=== PATIENT | male | born 1940 | race Caucasian/White ===

== ENCOUNTER → 2017-11-15 | Outpatient (CLI) | payer OTHER ==
[~2017-11-15] MED LIST: BAYER CHEWABLE81 MG PO; QUINU10 PD PO; TRAMADOL 50 MG50 MG PO; VIAGRA50 MG PO; ZOCOR40 MG PO
--- NOTE | ~2017-11-15 | 2DMMODE ---
[facility] [place] [address] 2 D/M-MODE ECHOCARDIOGRAM Name: DEEPASIRI Room #: REG [facility]#: [id number] Admission: 11/15/17 Attend Phys: Vin Zuluaga MD Discharge: Date of : 40 Date of Service: 11/15/17 1128 Report #: [id number] THIS REPORT FOR: //name// APPROVED REPORT Study performed: 11/15/2017 09:16:33 EXAM: Comprehensive 2D, Doppler, and color-flow Echocardiogram Patient Location: Out-Patient Status: routine BSA: 1.95 HR: 83 bpm BP: 149/79 mmHg Rhythm: NSR Other Information Study Quality: GoodAdequate Indications CAD. HTN. 2D Dimensions RVDd: 33.23 mm LVEF(%): 58.52 (>50%) IVSd: 12.58 (7-11mm) LVOT Diam: 20.64 (18-24mm) LVDd: 41.58 mm PWd: 12.57 (7-11mm) Ascending Ao: 32.31 (22-36mm) LVDs: 28.86 (25-40mm) Aortic Root: 34.41 mm Donovan's LVEF: 58.52 % Volumes Left Atrial Volume (Systole) Single Plane 4CH: 35.42 mL Single Plane 2CH: 40.71 mL LA ESV Index: 22.00 mL/m2 Aortic Valve AoV Peak Ranjit.: 2.30 m/s AO Peak Gr.: 21.09 mmHg LVOT Max P.13 mmHg AO Mean Gr.: 10.02 mmHg AO V2 Mean: 1.46 m/s LVOT Max V: 1.02 m/s AO V2 VTI: 42.41 cm ANANDA Vmax: 1.48 cm2 Mitral Valve [facility] [place] [place] [address] 2 D/M-MODE ECHOCARDIOGRAM Name: LEO ARENAS Room #: REG [facility].#: [id number] Admission: 11/15/17 Attend Phys: Vin Zuluaga MD Discharge: Date of : 40 Date of Service: 11/15/17 1128 Report #: [id number] E/A Ratio: 0.8 MV Decel. Time: 214.45 ms MV E Max Ranjit.: 0.84 m/s MV A Ranjit.: 1.12 m/s MV PHT: 62.19 ms IVRT: 110.73 ms Pulmonary Valve PV Peak Ranjit.: 1.33 m/s PV Peak Gr.: 7.11 mmHg Pulmonary Vein P Vein S: 0.61 m/s P Vein A: 0.28 m/s P Vein D: 0.41 m/s P Vein A Dur.: 143.0 msec P Vein S/D Ratio: 1.49 Tricuspid Valve TR Peak Ranjit.: 2.06 m/s RAP Estimate: 5.00 mmHg TR Peak Gr.: 17.00 mmHg PA Pressure: 22.00 mmHg Left Ventricle The left ventricle is normal size. There is normal LV segmental wall motion. Mild concentric left ventricular hypertrophy. Left ventricular systolic function is normal. LVEF is 55-60%. Mild diastolic dysfunction is present (impaired relaxation pattern). Right Ventricle The right ventricle is normal size. The right ventricular systolic function is normal. Atria The left atrium size is normal. The right atrium size is normal. Aortic Valve Aortic valve is moderately calcified. Mild aortic regurgitation. There is mild valvular aortic stenosis. Calculated aortic valve area is 1.5 cm2 with maximum pressure gradient of 21 mmHg and mean pressure gradient of 10 mmHg. Mitral Valve The mitral valve and annulus are heavily calcified. There is no mitral valve regurgitation noted. No evidence of mitral valve stenosis. [facility] [address] [place] [address] 2 D/M-MODE ECHOCARDIOGRAM Name: LEO ARENAS Room #: REG CL [facility]#: [id number] Admission: 11/15/17 Attend Phys: Vin Zuluaga MD Discharge: Date of : 40 Date of Service: 11/15/17 1128 Report #: [id number] Tricuspid Valve The tricuspid valve is normal in structure. Trace tricuspid regurgitation. Estimated PAP is 20-25mmHg. Pulmonic Valve The pulmonary valve is normal in structure. Trace to mild pulmonic regurgitation. Great Vessels The aortic root is normal in size. The ascending aorta is normal in size. IVC is normal in size and collapses >50% with inspiration. Pericardium There is no pericardial effusion. <Conclusion> The left ventricle is normal size. Mild concentric left ventricular hypertrophy. Left ventricular systolic function is normal. Mild diastolic dysfunction is present (impaired relaxation pattern). The right ventricle is normal size. Aortic valve is moderately calcified. There is mild valvular aortic stenosis. Mild aortic regurgitation. The mitral valve and annulus are heavily calcified. Trace tricuspid regurgitation. Estimated PAP is 20-25mmHg. <ELECTRONICALLY SIGNED> By: Vin Zuluaga MD 11/15/17 1128 1128 1128 Vin Zuluaga MD /INF
== END ==
LOC: CV 09:02
DX: I37.1 Nonrheumatic pulmonary valve insufficiency (principal); I35.1 Nonrheumatic aortic (valve) insufficiency; I11.9 Hypertensive heart disease without heart failure; I35.0 Nonrheumatic aortic (valve) stenosis; I25.10 Atherosclerotic heart disease of native coronary artery without angina pectoris; I70.0 Atherosclerosis of aorta

== ENCOUNTER → 2018-12-02 | Outpatient (CLI) | payer OTHER ==
[~2018-12-02] MED LIST changes: +ASPIR 8181 MG PO; +ASPIRIN325 PO; +ATORVASTATIN CA80 MG PO; +BRILINTA90 MG PO; +QUINAPRIL HCL40 MG PO; +TOPROL XL25 MG PO
--- NOTE | 2018-12-02 12:47 | EXE ---
[facility] [place] [address] STRESS ECHOCARDIOGRAM Name: LEO ARENAS Room #: REG [facility]#: [id number] Admission: 12/02/18 Attend Phys: Vin Zuluaga MD Discharge: Date of : 40 Date of Service: 12/02/18 1246 Report #: [id number] THIS REPORT FOR: //name// ADDENDUM APPROVED REPORT Study performed: 12/02/2018 10:08:58 Exam: Stress Echocardiogram Indication: HTN Patient Location: Out-Patient Stress Nurse: Angy Linn RN Status: routine Ht: 5 ft 8 in HR: 83 bpm BP: 110/58 mmHg Rhythm: NSR Medical History Allergies: No known drug allergies Cardiac Risk Factors: HTN Procedure The patient underwent an Exercise Stress Test using the Rosalio Protocol. Blood pressure, heart rate, and EKG were monitored. An Echocardiogram was performed by highway traffic control technician in four stages in quad fashion. At peak stress, four selected images were obtained and placed side by side with resting images for comparison. Stress Test Details Stress Test: Exercise stress testing was performed using a Rosalio protocol. HR Resting HR: 83 bpm Max Heart Rate (APMHR): 142 bpm Max HR Achieved: 142 bpm Target HR (85% APMHR): 120 bpm % of APMHR: 100 Recovery HR: 100 bpm HR response to stress: Normal HR response to stress BP Resting BP: 110/58 mmHg Max BP: 180/76 mmHg Recovery BP: 135/65 mmHg BP response to stress: Normal blood pressure response to stress. ECG [facility] [address] [place] [address] STRESS ECHOCARDIOGRAM Name: LEO ARENAS Room #: REG [facility]#: [id number] Admission: 12/02/18 Attend Phys: Vin Zuluaga MD Discharge: Date of : 40 Date of Service: 12/02/18 1246 Report #: [id number] Resting ECG: Sinus Rhythm Stress ECG: Sinus Rhythm, nonspecific ST-T abnormalities ST Change: Non-ischemic Clinical Reason for Termination: Maximal effort Stress Symptoms: Chest pressure Exercise duration: 6 min 18 sec Highest Stage Achieved: Stage 3: 3.4 mph at 14% grade. Exercise capacity: 7.5 METs Pre-Stress Echo The resting Echocardiogram showed normal left ventricular contractility with an estimated Ejection Fraction of about 55%. The resting echocardiogram demonstrated normal wall motion in all wall segments. Post-Stress Echo The stress Echocardiogram showed normal left ventricular contractility with an estimated Ejection Fraction of about 60-65%. Compared to rest, there were no stress-induced wall motion abnormalities. Clinical No ECG evidence for ischemia. Conclusion Clinical Response: Ischemic Exercise Capacity: Average Stress ECG Response: Non-ischemic Stress Echo Images: Non-ischemic The left ventricle is normal in size and wall thickness in both the rest and stress images. Other Information Study Quality: Good <Conclusion> The left ventricle is normal in size and wall thickness in both the rest and stress images. <ELECTRONICALLY SIGNED> By: Vin Zuluaga MD 12/02/18 1246 1246 1246 Vin Zuluaga MD /INF
== END ==
LOC: CV 08:02
DX: I65.23 Occlusion and stenosis of bilateral carotid arteries (principal); I10 Essential (primary) hypertension

== ENCOUNTER 2018-12-04 11:12 | Outpatient (CLI) | payer OTHER ==
[~2018-12-04] VITALS: Ht 177.8 cm; Wt 77.1 kg
[2018-12-04] VITALS (8 sets, daily range): BP systolic 133–167; BP diastolic 40–75
[~2018-12-04 11:12] MED LIST changes: -ASPIR 8181 MG PO; -ASPIRIN325 PO; -ATORVASTATIN CA80 MG PO; -BRILINTA90 MG PO; -QUINAPRIL HCL40 MG PO; -TOPROL XL25 MG PO
[2018-12-04] MEDS ORDERED: QUINAPRIL HCL40 MG PO (11:35)
[2018-12-04] MEDS ORDERED: TOPROL XL25 MG PO (11:35)
[2018-12-04] MEDS ORDERED: ASPIRIN325 PO (11:36)
--- NOTE | 2018-12-04 16:29 | CATHLAB ---
[facility] [place] [address] INVASIVE PROCEDURE REPORT Name: LEO ARENAS Room #: 209-P [facility]#: [id number] Admission: 12/04/18 Attend Phys: Vin Zuluaga MD Discharge: Date of : 40 Date of Service: 12/04/18 1628 Report #: [id number] THIS REPORT FOR: //name// APPROVED REPORT Study performed: 12/04/2018 12:14:54 Patient Details The patient is a 78 year-old male Event Personnel Vin Zuluaga Assistant Golf Professional, Lillie Alonzo RN, Nati Seals, Johnna Martinez Scrtamara Procedures Performed Left Heart Cath w/or w/o Coronaries [id number] [facility] Place w/wo Plasty Single CIRC [id number] Indication Dyspnea, Positive stress test, Chest pain Risk Factors Hypercholesterolemia, Hypertension Procedure Narrative The Right Groin^ was infiltrated with 1% Lidocaine subcutaneous anesthesia. A PINNACLE 4FR Sheath #[id number] sheath was inserted into the RFA^. Coronary angiography was performed using coronary diagnostic catheters. The right coronary system was accessed and visualized with a JR4 catheter. The left coronary system was accessed and visualized with a JL4 catheter. The left ventricle was accessed and visualized with a Pigtail catheter. Left ventricular/Aortic Valve gradient assessed via catheter pullback. Left ventriculogram was performed in HARVEY projection. Closure device was deployed with a Fr MYNX CONTROL 6F/7F #[id number]. The patient tolerated the procedure well and there were no complications associated with the procedure. There was no hematoma. Intraoperative Conscious Sedation Sedation start time: 1229 Case end Time: 1329 Fentanyl 100 mcg Versed 1 mg Fluoro Time: 14.70 minutes Dose: DAP 13131.00 cGycm2 2830 mGy [facility] [place] [address] [place] [address] INVASIVE PROCEDURE REPORT Name: DEEPASIRI Room #: 209-P [facility]#: [id number] Admission: 12/04/18 Attend Phys: Vin Zuluaga MD Discharge: Date of : 40 Date of Service: 12/04/18 1628 Report #: [id number] Contrast Type and Amount: Omnipaque 195 ml Coronary Angiography The patient's coronary anatomy is right dominant. Diagnostic Cath Left Main This is a large caliber vessel, with no flow-limiting lesions. LAD The LAD is a moderate size caliber vessel with calcification in the proximal segment. This vessel traverses the anterior wall and wraps around the apex. There is a severe occlusion in the proximal segment, 80%. Diagonal 1 This is a patent vessel, with no flow-limiting lesions. Circumflex This is a moderate size caliber vessel, with mild disease in the mid segment, 20%. OM1 This is a patent vessel, with no flow-limiting lesions. OM2 This is a patent vessel, with no flow-limiting lesions. Right Coronary This is a dominant vessel with a severe occlusion in the ostium, 75%. R PDA This is a moderate size caliber vessel, patent with no flow-limiting lesions. RPLV This is a moderate size caliber vessel, patent with no flow-limiting lesions. Left Ventriculography The left ventricle is normal in size with normal contractility. The left ventricular ejection fraction is estimated to be 55-60%. Hemodynamics The aortic pressure is 159/72 mmHg with a mean of 93 mmHg. The left ventricular pressure is 152/13 mmHg with a mean of mmHg. The left ventricular end diastolic pressure is 29 mmHg. PCI Technique Lesion Anticoagulation was achieved with Angiomax. Percutaneous coronary intervention was performed on the proximal left anterior descending artery segment. The lesion stenosis prior to intervention was 80% with KATE 3 flow. A Snow & AlpsTA 6FR XB 3.5 #[id number] Guide Catheter was used to engage the ostium. A Luge Wire .014 x 182CM #[id number] Interventional Guidewire was used to cross the lesion. BALLOON DILATION A Balloon catheter Euphora RX 2.5 x 10 #[id number] was inserted and [facility] [address] [place] [address] INVASIVE PROCEDURE REPORT Name: LEO ARENAS J Room #: 209-P [facility].R.#: [id number] Admission: 12/04/18 Attend Phys: Vin Zuluaga MD Discharge: Date of : 40 Date of Service: 12/04/18 1628 Report #: [id number] inflated up to 12.00atm for 18seconds. Additional Inflation: 12.00atm for 4seconds. STENT DEPLOYMENT A stent XIENCE JONATHAN RX 2.75 X 23 #[id number] was inserted and inflated up to 12.00atm for 17seconds. POST STENT DEPLOYMENT BALLOON DILATION A Balloon catheter TREK NC RX 3.0 X 12 #[id number] was inserted and inflated up to 14.00atm for 21seconds. Additional Inflation: 18.00atm for 20seconds. Final angiography reveals 5 % stenosis with KATE 3 flow. Conclusion 1. Successful insertion of a drug-eluting stent into the proximal LAD segment. 2. Severe stenosis at the ostium of the RCA, recommend staged angioplasty. 3. Mild disease in the left circumflex artery. 4. Normal LV systolic function. 5. Recommend dual antiplatelet therapy and aggressive risk factor management. <ELECTRONICALLY SIGNED> By: Vin Zuluaga MD 12/04/18 1628 Vin Zuluaga MD /INF
--- NOTE | 2018-12-04 18:14 | NUR ---
PT ADMITED FROM [facility]. ADMISSION HX AND ASSESSMENT COMPLETED. VSS. BRUIZING NOTED ON THE RIGHT GROIN. NO HEMATOMA NOTED. PT DENIED HAVING PAIN OR DISCOMFORT. SR ON TELE. NO CARDIAC DISTRESS NOTED. WILL CONTINUE TO MONITOR.
[2018-12-05 00:35] VITALS: BP 145/69
[2018-12-05 04:45] VITALS: BP 153/69
[2018-12-05 05:34] LABS: HEMATOCRIT 37.4 % (42.0-52.0); HEMOGLOBIN 12.7 gm/dL (14.0-18.0); MCH 27.9 pg (26.0-34.0); MCHC 33.9 g/dL (28.0-37.0); MCV 82.3 fL (80.0-100.0); RBC 4.55 mil/uL (4.50-6.00); RDW 13.5 % (10.5-14.5)
[2018-12-05 05:52] LABS: ALBUMIN 3.1 g/dL (3.4-5.0); CALCIUM 8.3 mg/dL (8.5-10.1); CREATININE 1.1 mg/dL (0.7-1.3); POTASSIUM 4.3 mmol/L (3.5-5.1); TOTAL BILIRUBIN 0.3 mg/dL (<0.1-1.0); TOTAL PROTEIN 6.1 g/dL (6.4-8.2)
--- NOTE | 2018-12-05 07:28 | EKG ---
[address] [place] [address] ELECTROCARDIOGRAM REPORT Name: LEO ARENAS Room #: 209-P [facility]#: [id number] Admission: 12/04/18 Attend Phys: Vin Zuluaga MD Discharge: Date of : 40 Report #: [id number] THIS REPORT FOR: //name// [facility] Test Date: 2018-12-04 Test Time: 11:37:04 Pat Name: LEO ARENAS Department: Room: Gender: Real Estate Transaction Manager: Saad GALLARDO : 1940 Requested By: Vin Zuluaga Order Number: [id number] MD: Reginald Sow Measurements Intervals [place] Rate: 66 P: 25 [place]: 196 QRS: -7 QRSD: 94 T: 15 QT: 408 QTc: 428 Interpretive Statements Sinus rhythm Normal tracing No previous ECG available for comparison Electronically Signed On 12-05-2018 7:28:20 CDT by Reginald Sow [email or web address] <ELECTRONICALLY SIGNED> By: Reginald Sow MD, [facility] 12/05/18 0728 1137 1137 Reginald Sow MD, FACC /EPI
[2018-12-05 08:10] VITALS: BP 179/78
[2018-12-05] MEDS ORDERED: ATORVASTATIN CA80 MG PO (08:23)
[2018-12-05] MEDS ORDERED: BRILINTA90 MG PO (08:23)
[2018-12-05] MEDS ORDERED: ASPIR 8181 MG PO (08:24)
[2018-12-05 08:40] VITALS: BP 179/78
--- NOTE | 2018-12-05 09:19 | NUR ---
ASSUMED PT CARE AT 0700. ASSESSMENT CHARTED. PT A&O X4. FALL PRECAUTIONS IN PLACE. PT'S VITAL SIGNS ARE STABLE. PT STATES HE DOES NOT HAVE CHEST PAIN OR PAIN IN GENERAL. PT'S POST-CATH R GROIN SITE IS CLEAN, DRY, AND INTACT. DRESSING REMOVED FROM R GROIN SITE. PT AND PT'S RECIEVED DISCHARGE INTRUCTIONS. PT AND ALSO RECIEVED EDUCATION AND INFORMATION ABOUT NEW MEDICATIONS. PT AND BOTH COMMUNICATED UNDERSTANDING ABOUT DISCHARGE INTRUCTIONS AND NEW MEDICATION INSTRUCTIONS. PT AND DENIED FURTHER QUESTIONS. PT ABULATES INDEPENDENTLY AND IS STABLE WHEN ABULATING. PT IS RECIEVING TRANSPORT VIA WHEELCHAIR TO DISCHARGE OUT OF HOSPITAL. PT IS DISCHARGING HOME. PT IS ACCOMPANIED WITH HIS . PT REMOVED FROM STATUS CONTROLLER. PT'S TWO IVS ARE REMOVED. PT DISCHARGED AT 0900.
--- NOTE | 2018-12-06 17:53 | EKG ---
[place] [address] [address] [address] ELECTROCARDIOGRAM REPORT Name: LEO ARENAS Room #: DEP [facility]#: [id number] Admission: 12/04/18 Attend Phys: Vin Zuluaga MD Discharge: 12/05/18 Date of : 40 Report #: [id number] THIS REPORT FOR: //name// [facility] Test Date: 2018-12-04 Test Time: 14:07:06 Pat Name: LEO ARENAS Department: Room: Gender: Manager Procurement: Saad GALLARDO : 1940 Requested By: Vin Zuluaga Order Number: [id number] MD: Reginald Sow Measurements Intervals [place] Rate: 66 P: 40 [place]: 189 QRS: -9 QRSD: 100 T: 4 QT: 419 QTc: 439 Interpretive Statements Sinus rhythm Borderline T abnormalities, inferior leads No previous ECG available for comparison Electronically Signed On 12-06-2018 17:53:45 CDT by Reginald Sow [email or web address] <ELECTRONICALLY SIGNED> By: Reginald Sow MD, [facility] 12/06/18 1753 1407 1407 Reginald Sow MD, FACC /EPI
--- NOTE | 2018-12-06 18:01 | EKG ---
[place] [address] [address] [facility] [email or web address] [address] ELECTROCARDIOGRAM REPORT Name: LEO ARENAS Room #: DEP [facility]#: [id number] Admission: 12/04/18 Attend Phys: Vin Zuluaga MD Discharge: 12/05/18 Date of : 40 Report #: [id number] THIS REPORT FOR: //name// [facility] Test Date: 2018-12-05 Test Time: 07:23:14 Pat Name: LEO ARENAS Department: Room: 209 P Gender: M Associate Relations Specialist: DON : 1940 Requested By: Vin Zuluaga Order Number: [id number] MD: Reginald Sow Measurements Intervals [place] Rate: 70 P: -1 [place]: 179 QRS: -6 QRSD: 90 T: 2 QT: 411 QTc: 444 Interpretive Statements Sinus rhythm No significant abnormality No previous ECG available for comparison Electronically Signed On 12-06-2018 18:01:35 CDT by Reginald Sow [email or web address] <ELECTRONICALLY SIGNED> By: Reginald Sow MD, [facility] 12/06/18 1801 0723 0723 Regianld Sow MD, FAC /EPI
--- NOTE | 2018-12-09 09:09 | D ---
[facility] [place] [address] DISCHARGE SUMMARY Name: LEO ARENAS J Room #: DEP [facility]#: [id number] Admission: 12/04/18 Attend Phys: Vin Zuluaga MD Discharge: 12/05/18 Date of : 40 Report #: [id number] THIS REPORT FOR: //name// CC: Jan Zuluaga DATE OF SERVICE: 12/05/2018 FINAL DIAGNOSES: 1. Unstable angina, status post coronary intervention. 2. Hypertension. 3. Hypercholesterolemia. 4. Edema. 5. Obstructive sleep apnea. 6. Carotid artery disease. HOSPITAL COURSE: Please see the original H and P for full details. He presents with an episode of chest pain while carrying chairs. He did undergo a stress test, developed recurrent chest pains while walking on the treadmill. He presented electively for cardiac catheterization. Please see the report for full details. There are severe occlusions involving the LAD and RCA. He underwent angioplasty with placement of a stent to the LAD. He was started on Brilinta overnight without any issues. He is stable for discharge today. I will have him follow up in the office shortly thereafter. There is consideration for staged angioplasty involving the lesion in the RCA. FINAL DISPOSITION: 1. Aspirin 81 mg. 2. Brilinta 90 mg b.i.d. 3. Lipitor 40 mg daily. 4. Toprol-XL 25 mg and quinapril 40 mg daily. 5. He is given an appointment in the office in a few weeks. <ELECTRONICALLY SIGNED> By: Vin Zuluaga MD 12/09/18 0909 0830 Vin Zuluaga MD /nt
== END 2018-12-05 10:00 | disposition home or self-care (01) ==
LOC: CATH 11:12 → 2N 15:16 → CATH 16:07 → ENTRNSPT 12-05 09:22 → EDTRNSPTSTS 12-05 09:22 → CATH 12-05 10:00
PROVIDERS: Internal Medicine Cardiovascular Disease
DX: I25.110 Atherosclerotic heart disease of native coronary artery with unstable angina pectoris (principal); I10 Essential (primary) hypertension; E78.5 Hyperlipidemia, unspecified; E78.00 Pure hypercholesterolemia, unspecified; G47.33 Obstructive sleep apnea (adult) (pediatric); Z98.890 Other specified postprocedural states; Z87.891 Personal history of nicotine dependence; Z79.82 Long term (current) use of aspirin; Z79.899 Other long term (current) drug therapy
CPT/HCPCS: 10081

== ENCOUNTER → 2019-01-16 | Outpatient (CLI) | payer OTHER ==
[~2019-01-16] MED LIST changes: +ASPIR 8181 MG PO; +ASPIRIN325 PO; +ATORVASTATIN CA80 MG PO; +BRILINTA90 MG PO; +QUINAPRIL HCL40 MG PO; +TOPROL XL25 MG PO
--- NOTE | 2019-01-16 15:02 | 2DMMODE ---
[facility] [place] [address] 2 D/M-MODE ECHOCARDIOGRAM Name: DEEPASIRI Room #: REG [facility]#: [id number] Admission: 01/16/19 Attend Phys: Vin Zuluaga MD Discharge: Date of : 40 Report #: [id number] THIS REPORT FOR: //name// APPROVED REPORT Study performed: 01/16/2019 14:14:58 EXAM: Comprehensive 2D, Doppler, and color-flow Echocardiogram Patient Location: Out-Patient Status: routine BSA: 1.90 HR: 66 bpm BP: 110/58 mmHg Rhythm: NSR Other Information Study Quality: Good Indications Arrhythmia. Hx: CAD, stent, HTN, HLP. 2D Dimensions RVDd: 30.14 mm IVSd: 12.00 (7-11mm) LVOT Diam: 21.11 (18-24mm) LVDd: 49.51 mm PWd: 9.79 (7-11mm) Ascending Ao: 32.92 (22-36mm) LVDs: 35.00 (25-40mm) Aortic Root: 36.64 mm Volumes Left Atrial Volume (Systole) Single Plane 4CH: 33.12 mL Single Plane 2CH: 52.18 mL LA ESV Index: 24.00 mL/m2 Aortic Valve AoV Peak Ranjit.: 2.18 m/s AO Peak Gr.: 18.95 mmHg LVOT Max P.93 mmHg AO Mean Gr.: 9.50 mmHg AO V2 Mean: 1.44 m/s LVOT Max V: 0.99 m/s AO V2 VTI: 47.76 cm ANANDA Vmax: 1.59 cm2 AI Vmax: 3.81 m/s AI Nash: 2.27 m/s2 AI PHT: 487.16 ms [facility] [address] 2 D/M-MODE ECHOCARDIOGRAM Name: LEO ARENAS Room #: REG [facility]#: [id number] Admission: 01/16/19 Attend Phys: Vin Zuluaga MD Discharge: Date of : 40 Report #: [id number] Mitral Valve E/A Ratio: 0.6 MV Decel. Time: 225.46 ms MV E Max Ranjit.: 0.72 m/s MV A Ranjit.: 1.20 m/s MV PHT: 65.38 ms IVRT: 96.89 ms Pulmonary Valve PV Peak Ranjit.: 1.08 m/s PV Peak Gr.: 4.70 mmHg Pulmonary Vein P Vein S: 0.66 m/s P Vein A: 0.37 m/s P Vein D: 0.34 m/s P Vein A Dur.: 121.1 msec P Vein S/D Ratio: 1.94 Tricuspid Valve TR Peak Ranjit.: 2.41 m/s RAP Estimate: 5.00 mmHg TR Peak Gr.: 23.31 mmHg PA Pressure: 28.00 mmHg Left Ventricle The left ventricle is normal size. There is normal LV segmental wall motion. Mild basal septal hypertrophy is present. Left ventricular systolic function is normal. LVEF is 55-60%. Mild diastolic dysfunction is present (impaired relaxation pattern). Right Ventricle The right ventricle is normal size. The right ventricular systolic function is normal. Atria The left atrium size is normal. The right atrium size is normal. Aortic Valve Aortic valve is moderately calcified. Mild aortic regurgitation. Mitral Valve The anterior mitral valve leaflet is moderately calcified. Moderate mitral annular calcification. Trace mitral regurgitation. No evidence of mitral valve stenosis. Tricuspid Valve [facility] [address] [place] [address] 2 D/M-MODE ECHOCARDIOGRAM Name: LEO ARENAS J Room #: REG [facility]#: [id number] Admission: 01/16/19 Attend Phys: Vin Zuluaga MD Discharge: Date of : 40 Report #: [id number] The tricuspid valve is normal in structure. Mild tricuspid regurgitation. Estimated PAP is 25-30mmHg. Pulmonic Valve The pulmonary valve is normal in structure. Trace pulmonic regurgitation. Great Vessels The aortic root is normal in size. The ascending aorta is normal in size. IVC is normal in size and collapses >50% with inspiration. Pericardium There is no pericardial effusion. <Conclusion> The left ventricle is normal size. Left ventricular systolic function is normal. Mild diastolic dysfunction is present (impaired relaxation pattern). The right ventricle is normal size. The left atrium size is normal. Aortic valve is moderately calcified. Mild aortic regurgitation. The anterior mitral valve leaflet is moderately calcified. Moderate mitral annular calcification. Trace mitral regurgitation. Mild tricuspid regurgitation. Estimated PAP is 25-30mmHg. <ELECTRONICALLY SIGNED> By: Vin Zuluaga MD 01/16/19 1502 150 150 Vin Zuluaga MD /INF
== END ==
LOC: ULTRA 13:30
DX: I08.3 Combined rheumatic disorders of mitral, aortic and tricuspid valves (principal); I65.23 Occlusion and stenosis of bilateral carotid arteries; I25.10 Atherosclerotic heart disease of native coronary artery without angina pectoris; I63.9 Cerebral infarction, unspecified; I10 Essential (primary) hypertension; E78.5 Hyperlipidemia, unspecified

== ENCOUNTER 2019-04-08 06:34 | Observation (INO) | payer OTHER ==
[~2019-04-08] VITALS: Ht 175.3 cm; Wt 77.9 kg
[2019-04-08] VITALS (14 sets, daily range): BP systolic 137–172; BP diastolic 64–84
[2019-04-08 07:09] LABS: HEMATOCRIT 36.7 % (42.0-52.0); HEMOGLOBIN 12.3 gm/dL (14.0-18.0); MCH 28.3 pg (26.0-34.0); MCHC 33.4 g/dL (28.0-37.0); MCV 84.6 fL (80.0-100.0); RBC 4.34 mil/uL (4.50-6.00); RDW 13.8 % (10.5-14.5); WBC 5.8 thou/uL (4.0-11.0)
[2019-04-08 07:16] LABS: CALCIUM 9.6 mg/dL (8.5-10.1); CREATININE 1.4 mg/dL (0.7-1.3)
[2019-04-08] MEDS ORDERED: CARVEDILOL12.5 MG PO (07:33)
[2019-04-08] MEDS ORDERED: PROTONIX40 M2 PO (07:34)
--- NOTE | 2019-04-08 09:06 | EKG ---
[address] [employer] [place] [address] ELECTROCARDIOGRAM REPORT Name: LEO ARENAS Room #: 160-1 [facility] M.R.#: [id number] Admission: 04/08/19 Attend Phys: Vin Zuluaga MD Discharge: Date of : 40 Report #: [id number] THIS REPORT FOR: //name// [facility] Test Date: 2019-04-08 Test Time: 07:21:00 Pat Name: LEO ARENAS Department: Room: 160 Gender: M Specialty Food Products Supervisor: MEAGAN : 1940 Requested By: Vin Zuluaga Order Number: [id number] MD: Reginald Sow Measurements Intervals [place] Rate: 66 P: 6 RI: 196 QRS: -7 QRSD: 88 T: 33 QT: 424 QTc: 445 Interpretive Statements Sinus rhythm Poor R wave progression Compared to ECG 12/05/2018 07:23:14 No significant change was found Electronically Signed On 04-08-2019 9:05:47 SOCIOCULTURAL ANTHROPOLOGY PROFESSOR by Reginald Sow [email or web address] <ELECTRONICALLY SIGNED> By: Reginald Sow MD, [facility] 04/08/19904 0 0 Reginald Sow MD, FACC /EPI
--- NOTE | 2019-04-08 11:06 | NUR ---
SHEATH PULLED BY FREDI [employer]RISTENS[employer] TUCKPOINTER CLEANER CAULKER.
[2019-04-08] MEDS ORDERED: VITAMIN B-121000 MC2 (12:49)
--- NOTE | 2019-04-08 13:18 | CATHLAB ---
[facility] [address] [place] [address] INVASIVE PROCEDURE REPORT Name: LEO ARENAS Room #: 212-P [facility] IN ..#: [id number] Admission: 04/08/19 Attend Phys: Vin Zuluaga MD Discharge: Date of : 40 Report #: [id number] THIS REPORT FOR: //name// APPROVED REPORT Study performed: 04/08/2019 08:09:42 Patient Details Patient Status: Out-Patient Room #: The patient is a 78 year-old male Event Personnel Vin Zuluaga Health Care Law Specialist, Lillie Alonzo RN, Yesika Guerra RN RN, Love Rojo Monitor, Haylie Stubbs RTR, JOSSIE Scrub, Yvonne Seals RTR Scrub Procedures Performed Art Access - R femoral artery* 85853 Initial Mod Sed Same Phys/QHP Gr5y [id number] 72270 Mod Sed Same Phys/QHP Ea 877429 Left Heart Cath w/or w/o Coronaries 9957451 [facility] Place w/wo Plasty Single RCA 463034 Hemostasis with Manual pressure Indication Dyspnea, Unstable angina , Chest pain Risk Factors Cerebrovascular Disease, Hypercholesterolemia, Coronary Artery DiseaseHypertension Previous Procedures/Diagnoses Previous CVAPrevious PCI Procedure Narrative The patient was brought electively to the Cardiac Catheterization Laboratory and was prepped and aped in a sterile manner. The Right Groin^ was infiltrated with 1% Lidocaine subcutaneous anesthesia. A PINNACLE 4FR Sheath #[id number] sheath was inserted into the RFA^. Coronary angiography was performed using coronary diagnostic catheters. The right coronary system was accessed and visualized with a JR 4 catheter. The left coronary system was accessed and visualized with a JL 5 catheter. The left ventricle was accessed and visualized with a Pigtail catheter. Left ventricular/Aortic Valve gradient assessed via catheter pullback. Hemostasis was obtained with manual pressure following sheath removal without any complications. The patient tolerated the procedure well and there were no complications [facility] [address] [place] [address] INVASIVE PROCEDURE REPORT Name: LEO ARENAS Room #: 212-P [facility] [place] [facility].#: [id number] Admission: 04/08/19 Attend Phys: Vin Zuluaga MD Discharge: Date of : 40 Report #: [id number] associated with the procedure. There was no hematoma. Intraoperative Conscious Sedation Sedation start time: 08:05 Case end Time: 09:01 Fentanyl 75 mcg Versed 1.5 mg Fluoro Time: 16.70 minutes Dose: DAP 25443.00 cGycm2 2507 mGy Contrast Type and Amount: Visipaque 155 ml Coronary Angiography The patient's coronary anatomy is right dominant. Diagnostic Cath Left Main This is a large caliber vessel, patent with no flow-limiting lesions. LAD There is a moderate size caliber vessel, traversing the anterior wall and wrapping around the apex. There is moderate calcification in the LAD. There is a stent in the proximal LAD segment, widely patent with minimal restenosis. There is a mild stenosis in the midsegment of the LAD, 30%. Diagonal 1 This is a small moderate size caliber vessel, with a moderate stenosis in the proximal segment, 40%. Circumflex This is a patent vessel, supplying 2 obtuse marginal arteries. OM1 This is a small size caliber vessel, patent with no flow-limiting lesions. OM2 This is a moderate size caliber vessel, with mild disease in the proximal segment, 30%. Right Coronary This is a dominant vessel with a severe stenosis at the ostium, 85%. After engaging the 4 [place] right guide catheter into the RCA, there is damping of the arterial pressures. R PDA This is a moderate size caliber vessel, patent with no flow-limiting lesions. RPLV This is a moderate size caliber vessel, patent with no flow-limiting lesions. Left Ventriculography Left Ventriculography was not performed. Ejection Fraction was >55% based off patient's Echocardiogram. An LVEDP was measured and there is no gradient across the outflow tract. IVUS Findings [facility] [place] RX 3.0 X 12 #[id number] [place] [address] INVASIVE PROCEDURE REPORT Name: LEO ARENAS Room #: 212-P [facility] [place] M.R.#: [id number] Admission: 04/08/19 Attend Phys: Vin Zuluaga MD Discharge: Date of : 40 Report #: [id number] Hemodynamics The aortic pressure is 144/65 mmHg with a mean of 99 mmHg. The left ventricular pressure is 163/11 mmHg with a mean of mmHg. The left ventricular end diastolic pressure is 27 mmHg. PCI Technique Lesion Percutaneous coronary intervention was performed on the ostial/proximal right coronary artery. The lesion stenosis prior to intervention was 85% with KATE 3 flow. A VISTA 6FR JR 4 #[id number] Guide Catheter was used to engage the ostium. A Luge Wire .014 x 182CM #[id number] Interventional Guidewire was used to cross the lesion. BALLOON DILATION A Balloon catheter TREK NC RX 2.5 X 12 #[id number] was inserted and inflated up to 16.00atm for 37seconds. STENT DEPLOYMENT A drug-eluting stent XIENCE JONATHAN RX 3.25 X 15 #[id number] was inserted and inflated up to 14.00atm for 25seconds. Additional Inflation: 18.00atm for 17seconds. POST STENT DEPLOYMENT BALLOON DILATION A Balloon catheter TREK NC RX 3.5 X 12 #[id number] was inserted and inflated up to 18.00atm for 22seconds. Final angiography reveals 5 % stenosis with KATE 3 flow. BALLOON DILATION A Balloon catheter TREK NC RX 3.0 X 12 #[id number] was inserted and inflated up to 14.00atm for 16seconds. Additional Inflation: 18atm for 20seconds. Conclusion 1. Successful insertion of a drug-eluting stent into the ostial/proximal RCA segment. 2. There is a patent stent in the proximal LAD, with minimal restenosis. 3. There is mild to moderate disease in the first diagonal artery and OM1. 4. Recommend dual antiplatelet therapy and aggressive risk factor management. <ELECTRONICALLY SIGNED> By: Vin Zuluaga MD 04/08/19 1318 17 17 Vin Zuluaga MD /INF
--- NOTE | 2019-04-08 15:33 | NUR ---
ASSUMED CARE AT 1100, SHIFT ASSESSMENT DONE, POST CATH, RIGHT GROIN SITE CLEAN, DRY, INTACT. NO HEMATOMA. NSR ON TELE, ROOM AIR. POST CATH VITAL SIGNS DOCUMENTED. WILL CONTINUE TO ASSESS AND ASSIST WITH ADLs NEEDED.
[2019-04-09 00:02] VITALS: BP 135/63
[2019-04-09 04:44] VITALS: BP 160/80
[2019-04-09 05:14] LABS: HEMOGLOBIN 12.4 gm/dL (14.0-18.0); MCH 28.3 pg (26.0-34.0); MCHC 33.5 g/dL (28.0-37.0); MCV 84.4 fL (80.0-100.0); RBC 4.38 mil/uL (4.50-6.00); RDW 13.7 % (10.5-14.5); WBC 6.5 thou/uL (4.0-11.0)
[2019-04-09 05:25] LABS: ALBUMIN 3.1 g/dL (3.4-5.0); CREATININE 1.2 mg/dL (0.7-1.3); TOTAL BILIRUBIN 0.6 mg/dL (<0.1-1.0); TOTAL PROTEIN 6.5 g/dL (6.4-8.2)
[2019-04-09 07:22] VITALS: BP 148/67
--- NOTE | 2019-04-09 07:59 | EKG ---
[address] [place] [address] ELECTROCARDIOGRAM REPORT Name: LEO ARENAS Room #: 212-P [facility] M..#: [id number] Admission: 04/08/19 Attend Phys: Vin Zuluaga MD Discharge: Date of : 40 Report #: [id number] THIS REPORT FOR: //name// [facility] Test Date: 2019-04-08 Test Time: 09:59:06 Pat Name: LEO ARENAS Department: Room: Formerly named [facility] Gender: M Human Resources Mgr: MEAAGN : 1940 Requested By: Vin Zuluaga Order Number: [id number] MD: Reginald Sow Measurements Intervals [place] Rate: 66 P: 44 WV: 196 QRS: 2 QRSD: 88 T: -35 QT: 428 QTc: 449 Interpretive Statements Sinus rhythm Poor R wave progression Borderline T abnormalities, inferior leads Compared to ECG 04/08/2019 07:21:00 No significant change was found Electronically Signed On 04-09-2019 7:58:25 DATA MODELING ARCHITECT by Reginald Sow [email or web address] <ELECTRONICALLY SIGNED> By: Reginald Sow MD, [facility] 04/09/19 0758 0959 Reginald Sow MD, FACC /EPI
--- NOTE | 2019-04-09 08:12 | EKG ---
[place] [address] [address] [employer] [address] ELECTROCARDIOGRAM REPORT Name: LEO ARENAS Room #: 212-P [facility] M.R.#: [id number] Admission: 04/08/19 Attend Phys: Vin Zuluaga MD Discharge: Date of : 40 Report #: [id number] THIS REPORT FOR: //name// [facility] Test Date: 2019-04-09 Test Time: 06:57:51 Pat Name: LEO ARENAS Department: Room: 212 P Gender: M Search Director: Terrell GANDHI : 1940 Requested By: Vin Zuluaga Order Number: [id number] MD: Reginald Sow Measurements Intervals [place] Rate: 69 P: -4 [place]: 177 QRS: -10 QRSD: 82 T: -1 QT: 409 QTc: 438 Interpretive Statements Sinus rhythm Nonspecific ST and T wave abnormality Compared to ECG 04/08/2019 07:21:00 T-wave abnormality now present Poor R-wave progression no longer present Electronically Signed On 04-09-2019 8:12:03 IT SECURITY ADMINISTRATOR by Reginald Sow [email or web address] <ELECTRONICALLY SIGNED> By: Reginald Sow MD, [facility] 04/09/19811 0657 0657 Reginald Sow MD, [facility] /EPI
[2019-04-09 09:07] VITALS: BP 148/67
--- NOTE | 2019-04-09 09:09 | NUR ---
ASSUMED CARE OF PT APPROX 0715, HE'S READY FOR DISCHARGE, GAVE GENTLE REMINDER ON PROCESS, WILL WORK ON SOON POSSIBLE THE ORDERS COME DOWN, SPOUSE AT BEDSIDE. NO C/O PAIN, GROIN SITE CDI AND SOFT, GOOD APPETITE, SEE SEPARATE INTERVENTIONS FOR ASSESSMENTS, CARDIAC MONITORED. ENCOURAGED BOTH PT AND SPOUSE TO CALL FOR ANY NEEDS AND GAVE THEM DRINKS
--- NOTE | 2019-04-10 08:54 | D ---
[facility] [place] [address] DISCHARGE SUMMARY Name: LEO ARENAS Room #: 212-P [facility] Sabrina Ballesteros#: [id number] Admission: 04/08/19 Attend Phys: Vin Zuluaga MD Discharge: 04/09/19 Date of : 40 Report #: [id number] THIS REPORT FOR: //name// CC: Jan Zuluaga FINAL DIAGNOSES: 1. Unstable angina, status post percutaneous coronary intervention. 2. History of coronary artery disease. 3. Cerebrovascular accident. 4. Hypertension. 5. Hypercholesterolemia. HOSPITAL COURSE: See the original H and P for full details. The patient presents with chest pain with exertion. Please see the cardiac catheterization report for full details. The previously placed stent in the proximal LAD was widely patent. There is bnbb-la-pdenwrdz disease in a diagonal and OM branch. There was a severe occlusion in the ostial/proximal segment of the dominant RCA. With a 4-Syrian diagnostic right catheter, there was damping of pressures as well. Angioplasty was performed with placement of a drug-eluting stent. The patient tolerated the procedure without any issues. He has remained stable overnight. He reports that he is ambulating on telemetry floor without any problems. DISCHARGE MEDICATIONS: Quinapril 40 mg daily, Brilinta 90 mg twice a day, Lipitor 40 mg daily, aspirin 81 mg daily, Coreg 6.25 mg twice a day and Protonix. He is given instructions for followup in a few weeks. <ELECTRONICALLY SIGNED> By: Vin Zuluaga MD 04/10/19 0854 08 Vin Zuluaga MD /nt
== END 2019-04-09 10:09 | disposition home or self-care (01) ==
LOC: CATH 06:34 → TBACV 08:39 → 2N 11:44 → ENTRNSPT 04-09 09:45 → EDTRNSPTSTS 04-09 09:49 → 2N 04-09 10:09
PROVIDERS: ADMIT Internal Medicine Cardiovascular Disease
DX: I25.110 Atherosclerotic heart disease of native coronary artery with unstable angina pectoris (principal); I63.9 Cerebral infarction, unspecified; I10 Essential (primary) hypertension; E78.00 Pure hypercholesterolemia, unspecified; Z79.82 Long term (current) use of aspirin; G47.33 Obstructive sleep apnea (adult) (pediatric); Z79.899 Other long term (current) drug therapy; Z87.891 Personal history of nicotine dependence

== ENCOUNTER → 2019-09-29 | Outpatient (CLI) | payer OTHER ==
[~2019-09-29] MED LIST changes: +CARVEDILOL12.5 MG PO; +PROTONIX40 M2 PO; +VITAMIN B-121000 MC2
== END ==
LOC: SJCVC 07:59
PROVIDERS: ATTEND Internal Medicine Cardiovascular Disease
DX: I10 Essential (primary) hypertension (principal); E78.5 Hyperlipidemia, unspecified; G47.33 Obstructive sleep apnea (adult) (pediatric); I25.10 Atherosclerotic heart disease of native coronary artery without angina pectoris; Z87.891 Personal history of nicotine dependence

== ENCOUNTER → 2020-05-03 | Outpatient (CLI) | payer OTHER | LOC: SJCVCIMAG 04-21 14:32 | PROVIDERS: ATTEND Internal Medicine Cardiovascular Disease | DX: I25.10 Atherosclerotic heart disease of native coronary artery without angina pectoris (principal); R00.0 Tachycardia, unspecified; I49.3 Ventricular premature depolarization; I10 Essential (primary) hypertension; E78.00 Pure hypercholesterolemia, unspecified; I63.9 Cerebral infarction, unspecified; G47.30 Sleep apnea, unspecified; Z95.5 Presence of coronary angioplasty implant and graft; Z79.82 Long term (current) use of aspirin; Z79.899 Other long term (current) drug therapy; Z86.73 Personal history of transient ischemic attack (TIA), and cerebral infarction without residual deficits; Z87.891 Personal history of nicotine dependence ==

== ENCOUNTER → 2020-11-02 | Outpatient (CLI) | payer OTHER | LOC: SJCVC 09:33 | PROVIDERS: ATTEND Internal Medicine Cardiovascular Disease | DX: R94.31 Abnormal electrocardiogram [ECG] [EKG] (principal); E78.00 Pure hypercholesterolemia, unspecified; I25.10 Atherosclerotic heart disease of native coronary artery without angina pectoris; I10 Essential (primary) hypertension; R60.9 Edema, unspecified; G47.33 Obstructive sleep apnea (adult) (pediatric); E78.5 Hyperlipidemia, unspecified; Z79.82 Long term (current) use of aspirin; Z79.899 Other long term (current) drug therapy; Z86.73 Personal history of transient ischemic attack (TIA), and cerebral infarction without residual deficits; Z87.891 Personal history of nicotine dependence; Z72.89 Other problems related to lifestyle ==

== ENCOUNTER → 2021-05-05 | Outpatient (CLI) | payer OTHER | LOC: SJCVCIMAG 08:12 | PROVIDERS: ATTEND Internal Medicine Cardiovascular Disease | DX: I08.3 Combined rheumatic disorders of mitral, aortic and tricuspid valves (principal); R94.31 Abnormal electrocardiogram [ECG] [EKG]; I25.10 Atherosclerotic heart disease of native coronary artery without angina pectoris; I10 Essential (primary) hypertension; E78.00 Pure hypercholesterolemia, unspecified; I63.9 Cerebral infarction, unspecified; R60.9 Edema, unspecified; E78.5 Hyperlipidemia, unspecified; G47.33 Obstructive sleep apnea (adult) (pediatric); Z79.82 Long term (current) use of aspirin; Z79.899 Other long term (current) drug therapy; Z87.891 Personal history of nicotine dependence; Z72.89 Other problems related to lifestyle; Z95.5 Presence of coronary angioplasty implant and graft ==